=== PATIENT | female | born 1995 | race Two or more races ===

== ENCOUNTER 2020-03-07 09:04 | Observation (INO) ==
--- NOTE | 2020-02-21 09:29 | PAT Medication Instructions ---
Medication Instructions Date of Service February 21, 2020 Home Medications acetaminophen 325 mg tablet 325 mg PO QID PRN Take morning of surgery With a small sip of water, OTHERWISE NOTHING TO EAT OR DRINK AFTER MIDNIGHT: acetaminophen 325 mg tablet 325 mg PO QID PRN (okay to take up to 4 hours prior to surgery if needed) Take evening before surgery acetaminophen 325 mg tablet 325 mg PO QID PRN (if needed) Other Notes If you have any questions please call us at [phone] or [phone] or [phone] or [phone]
--- NOTE | 2020-02-26 09:48 | Anesthesiology Consultation ---
Date of Service February 26, 2020 Assessment & Plan (1) Encounter for pre-operative examination: Per PAT assessment on 02/25: Travel screen negative. No known COVID positive contacts. No history of COVID testing. No current COVID related symptoms. - Check test AM DOS Chart Review Chart Review: Acceptable Risk for Surgery and Patient seen in Pre Admission Testing Teaching & Discussion Pre-Anesthesia Teaching/Discussion Notes: Instructed NPO after midnight before surgery,except medications with 15 cc of water. Medication instructions provided according to the [facility] guidelines. History Surgery Operation Date: 03/07/20 10:30 Proposed Procedures p Robotic Laparoscopic Bilateral Ovarian Cystectomy, Possible Bilateral Removal of Ovaries - Ever Hardy Jr, MD, FACOG Height/Weight Height: 5 ft 3 in Weight: 63.6 kg Allergies Allergy/AdvReac Type Severity Reaction Status Date / Time No Known Allergies Allergy Verified 02/13/20 14:52 Medications Home Medications Medication Instructions Recorded Confirmed Last Taken acetaminophen 325 mg tablet 325 mg PO QID PRN 02/13/20 02/13/20 Unknown Past Medical History Medical History Dermoid cyst of both ovaries Dysmenorrhea Fibroids Exercise / Class Metabolic Activity II 4-5 Yardwork/Stairs/Walk up hill Past Surgical History Surgical History No history of previous surgery Past Anesthesia History No Hx of Anesthesia Complications and No Family Hx of Anesthesia Complications History of PONV No Hx of PONV and No Hx of Motion Sickness Social History Smoking Status: Never smoker Do You Dip or Chew Tobacco: No Hx Alcohol Use: Yes Alcohol type: wine alcohol intake frequency: a few times a month Hx Substance Use: No substance use type: does not use Review of Systems Patient denies chest pain, shortness of breath, dyspnea on exertion, fever, chil ls, cough, wheezing, palpitations. Physical Exam Vital Signs VITALS BP 100/65 P 67 TEMP 98.5 SP02 99%RA RESP 16 PHYSICAL Full neck and c-spine range of motion. Full TMJ range of motion. TMD 4 finger breaths Mallampati Score 2 Dentition: intact Lungs: clear throughout to auscultation Cardiac: regular rate and rhythm, no murmurs noted Spine: normal Extremities: no edema Testing Laboratory Results 02/26/20 10:21 Blood Type O Positive 02/26/20 10:21 Antibody Screen NEGATIVE 02/26/20 10:21
[2020-02-26 11:21] LABS: Hematocrit (blood only) 37.7 % (37-47); Hemoglobin 11.8 g/dL (12.0-16.0); Mean Corpuscular Hemoglobin 26.2 pg (25-34); Mean Corpuscular Hgb Conc 31.3 g/dL (32-36); Mean Corpuscular Volume 83.8 fL (80-100); Mean Platelet Volume 10.9 fL (7.4-10.4); Platelet Count 278 K/uL (130-400); RDW Coefficient of Variation 15.1 % (11.5-14.5); RDW Standard Deviation 46.3 fL (36.4-46.3)
[2020-02-26 11:49] LABS: Basophils # (auto) 0.01 K/uL (0-0.2); Basophils % (auto) 0.2 %; Eosinophils # (auto) 0.39 K/uL (0-0.5); Eosinophils % (auto) 6.2 %; Lymphocytes # (auto) 3.34 K/uL (1.2-3.4); Monocytes # (auto) 0.43 K/uL (0.11-0.59); Monocytes % (auto) 6.8 %; Neutrophils # (auto) 2.13 K/uL (1.4-6.5); Neutrophils % (auto) 33.8 %
[~2020-03-07 09:04] MED LIST: DEXAMETHASONE SOD INJ 4 MG/ML VIAL ONE; GLYCOPYRROLATE 0.2 MG/ML VIAL ONE; LACTATED RINGER'S 1,000 ML IV SCH; LIDOCAINE HCL 2% 2 ML VIAL/AMP(20MG/ML) INFIL ONE; LR 15ML/HR IV SCH; MIDAZOLAM HCL 1 MG/ML 2ML VIAL ONE; NEOSTIGMINE METHYLSULFATE 5 MG/5 ML SYR ONE; ONDANSETRON INJ 2 MG/ML 2 ML VIAL ONE; PROPOFOL IV EMULSION 10 MG/ML 20 ML VIAL IV ONE; ROCURONIUM BROMIDE 10 MG/ML 5 ML VIAL ONE; fentaNYL citrate 100 MCG/2 ML VIAL ONE
[2020-03-07] MEDS ORDERED: BUPIVACAINE 0.5 % 5 MG/1 ML MPF 30ML VIAL ONE (10:15)
--- NOTE | 2020-03-07 10:30 | History & Physical Bridge Note ---
Date of Service March 07, 2020 History & Physical Bridge Note I have examined the patient, reviewed the History & Physical and in the interval since the performance of the History & Physical I have noted the following changes of clinical significance: COVID-19 culture was negative
[2020-03-07] MEDS ORDERED: GLYCOPYRROLATE 0.2 MG/ML VIAL ONE (12:33)
[2020-03-07] MEDS ORDERED: ONDANSETRON INJ 2 MG/ML 2 ML VIAL ONE (12:52)
[2020-03-07] MEDS ORDERED: KETOROLAC 30 MG/ML VIAL ONE (13:05)
--- NOTE | 2020-03-07 13:15 | Post Operative Brief Note ---
PG Immediate Post Op with CF Date of Surgery March 07, 2020 Pre & Post Diagnosis Operation Date: 03/07/20 10:30 Pre-Op Diagnosis: Dermoid Cyst of Both Ovaries, Dysmenorrhea, Fibroi Post-Op Diagnosis: Dermoid Cyst of Both Ovaries, Dysmenorrhea, Fibroi I identified the patient and participated in the time-out.: Yes Procedure Operation Date: 03/07/20 10:30 Actual Procedures p Robotic Bilateral Laparoscopic Ovarian Cystectomy, - Ever Hardy Jr, MD, FACOG Surgeon Ever Hardy Jr, MD, FACOG Jig Borer Katelyn Estimated Blood Loss 30 Findings See Below (posterior 6 cm fibroid, bilateral 6 cm ovarian dermoid cyst, bilateral ovarian cysyectomy, right cyst ruptured with removal, pelvis copiously irragated) Specimens Specimen Description: Permanent Specimen A: Left Ovarian Cyst B: Right Ovarian Cyst C: Left Ovarian Biopsy Drains Starkey Catheter
[2020-03-07] MEDS: fentaNYL citrate 100 MCG/2 ML VIAL IV PRN ×4 (13:31→13:48)
[2020-03-07] MEDS ORDERED: fentaNYL citrate 100 MCG/2 ML VIAL ONE ×2 (13:33→13:44)
[2020-03-07] MEDS ORDERED: ePHEDrine sulfate 50 MG/ML AMP IV PRN (13:36)
[2020-03-07] MEDS ORDERED: ATROPINE SULFATE 0.1 MG/ML 10ML SYR IV PRN (13:36)
[2020-03-07] MEDS ORDERED: PROMETHAZINE HCL 6.25 MG in SODIUM CHLORIDE 0.9% 50 ML IV PRN (13:36)
[2020-03-07] MEDS ORDERED: ONDANSETRON INJ 2 MG/ML 2 ML VIAL IV PRN ×2 (13:36→15:09)
[2020-03-07] MEDS ORDERED: HYDROmorphone INJ 1 MG/ML SYRINGE ONE (13:44)
--- NOTE | 2020-03-07 14:10 | Operative Report (OR) ---
DATE OF OPERATION: 03/07/2020 PREOPERATIVE DIAGNOSIS: Bilateral ovarian cysts. POSTOPERATIVE DIAGNOSIS: Bilateral ovarian cysts. PROCEDURE PERFORMED: Bilateral ovarian cystectomy. SURGEON: Ever Hardy MD. TORPEDO WORKER: Rachel Zepeda MD. ANESTHESIA: General. FINDINGS: Laparoscopic examination of the pelvis showed a uterus with a 6 cm posterior fibroid. Bilateral ovarian cysts consistent with dermoid cysts were noted. Bilateral ovarian cystectomies performed. Cyst each measured approximately 6 cm, inadvertent rupture of right ovarian cyst during excision. Pelvis thoroughly irrigated with 1000 mL of warm saline. PROCEDURE IN DETAIL: The patient was taken to the operating room and after general anesthesia, was positioned, prepped, and draped for a laparoscopic ovarian cystectomy. Starkey catheter was inserted into the bladder, which remained there throughout the procedure. Allis tenaculum was used to grasp the anterior lip of the cervix. Cleary cannula was inserted into the cervical os and fastened to the tenaculum. Small subumbilical incision was made and a Veress needle was introduced into the pelvic cavity, which was then insufflated with 3 liters of CO2. An 11 mm suprapubic port was inserted into the umbilical incision. Pelvic organs were visualized and then under direct laparoscopic guidance, two 8 mm robotic ports were placed along with a 10 mm assistance port. The robot was brought to the table and successfully docked. The pelvis was visualized with the description as above. The left ovarian cyst was exophytic off the surface of the ovary. This allowed cauterization across the base of the cyst excising it from the residual ovary. The cyst was placed in a bag and brought out through the assistant plant controller 11 mm port and sent for pathological evaluation. The cortex of the right ovary was cauterized, opening and exposing the cyst wall. The cyst was carefully dissected out from the ovarian cortex, but a small incision was made into the cyst. The contents of the cyst, primarily fluid, was aspirated out. This allowed complete shelling of the ovarian cyst, which was then placed in a bag and brought out through the 11 mm assistants' port. The ovarian shell on the right was copiously irrigated. Hemostasis was present. The left ovary showed hemostasis. The pelvis was then thoroughly irrigated with 1000 mL of warm saline. Trocars were removed and the CO2 was allowed to escape from the pelvic cavity. The fascial defect from the 11 mm assistants' port was closed with interrupted [id number] Vicryl sutures. The skin incisions were closed with 4-0 subcuticular Vicryl sutures. Starkey catheter was removed along with the acorn cannula and Allis clamp. The patient was taken out of dorsal lithotomy to recovery room in satisfactory condition. I attest to the content of the Intraoperative Record and any orders documented therein. Any exception s are noted below.
[2020-03-07] MEDS: HYDROmorphone INJ 2 MG/ML SYR/VIAL IV PRN ×2 (14:13→14:18)
--- NOTE | 2020-03-07 14:49 | Anesthesiology Progress Note ---
Date of Service March 07, 2020 Anesthesia Post Procedure Vital Signs Vital Signs: Temp Pulse Pulse Resp BP BP Pulse Ox 03/07/20 14:25 66 16 114/63 98 03/07/20 14:15 71 16 107/62 94 03/07/20 14:05 36.4 C L 70 16 107/69 99 03/07/20 13:55 58 L 16 88/64 L 100 03/07/20 13:45 56 L 16 104/62 100 03/07/20 13:35 71 16 97/56 L 100 03/07/20 13:29 35.6 C L 58 L 16 108/49 L 99 03/07/20 09:30 37.3 C 90 20 108/69 99 Transfer of Care Handoff Completed per policy Notes Mental Status: alert / awake / arousable Patient Amnestic to Procedure: Yes Nausea / Vomiting: adequately controlled Pain: adequately controlled Airway Patency, RR, SpO2: stable & adequate BP & HR: stable & adequate Hydration State: stable & adequate Anesthetic Complications: no major complications apparent
[2020-03-07] MEDS ORDERED: ACETAMINOPHEN 325 MG TAB PO PRN (15:09)
[2020-03-07] MEDS ORDERED: KETOROLAC 30 MG/ML VIAL IV PRN (15:09)
[2020-03-07] MEDS ORDERED: OXYCODONE/ACETAMINOPHEN 5mg/325mg TAB PO PRN ×2 (15:09)
[2020-03-07] MEDS ORDERED: LACTATED RINGER'S 1,000 ML IV SCH (15:09)
[2020-03-07] MEDS ORDERED: IBUPROFEN 600 MG TAB PO PRN (15:09)
[2020-03-07] MEDS ORDERED: MEPERIDINE HCL 50 MG/ML CARP IV PRN (15:09)
--- NOTE | 2020-03-07 17:46 | Gynecologic Progress Note ---
Date of Service March 07, 2020 Assessment & Plan (1) Dermoid cyst of both ovaries: Discharge instructions given through medical and health services manager. All questions answered of the patient. Patient will follow-up in 2 weeks time for postoperative check. Admission and Anticipated Discharge Date Admission Date: March 07, 2020 Subjective Doing well would like to go home doing well would like to go home Results & Data ([facility]) Vital Signs (Past 12 Hours) Vital Signs Temp Pulse Pulse Resp BP BP Pulse Ox 03/07/20 15:45 83 12 92/53 L 94 03/07/20 15:15 71 16 103/55 L 98 03/07/20 14:45 97.5 F L 60 16 98/58 L 97 03/07/20 14:25 66 16 114/63 98 03/07/20 14:15 71 16 107/62 94 03/07/20 14:05 97.5 F L 70 16 107/69 99 03/07/20 13:55 58 L 16 88/64 L 100 03/07/20 13:45 56 L 16 104/62 100 03/07/20 13:35 71 16 97/56 L 100 03/07/20 13:29 96.1 F L 58 L 16 108/49 L 99 03/07/20 09:30 99.1 F 90 20 108/69 99 PG Care Time/CCT Total # of Minutes Spent Total Time Spent with Patient: Total time spent is greater than 50% in coordination of care (as documented) at patient's floor/unit and/or counseling patient: Coding Level of Care Code None Diagnoses Dermoid cyst of both ovaries D27.0; D27.1
--- NOTE | 2020-03-07 18:36 | Discharge Summary ---
Date of Service March 07, 2020 Admission HPI Per Admitting Provider The patient is a 24-year-old 0, last menstrual period of 11 February, who presents today for preoperative examination. History and examination is facilitated with use of a burr grinder. The patient has incapacitating dysmenorrhea which was being worked up by [facility]. The patient's symptoms were non responsive to conservative management and radiographically evaluation was ordered. The keisha velázquez had a pelvic ultrasound and subsequent pelvic MRI which showed bilateral 5 cm ovarian dermoids. The patient was referred to [facility] for evaluation and resection was recommended. The patient had deferred her surgery till January because her mother was planning to, to the [facility] from [place]. With the COVID 19 outbreak, her mother was unable to come to the [facility]. In addition, her roommate is out of the country and cannot return to the [facility]. Discharge Data Procedures Performed Operation Date: 03/07/20 10:30 Actual Procedures p Robotic Bilateral Laparoscopic Ovarian Cystectomy(Not Applicable) - Ever Hardy Jr, MD, [facility] Course (1) Dermoid cyst of both ovaries: On the day of admission the patient was taken to the operating room where she underwent the above listed procedures. Operative findings showed bilateral dermoid cyst approximately 5 to 6 cm in size. Bilateral ovarian cystectomies performed and sent for pathological evaluation. At the time of the surgery the 6 cm posterior wall fibroid was noted. Postoperatively the patient did well. The patient was able to ambulate, tolerate a regular diet, and void. She was given the discharge instructions via forestry laborer. She will follow-up in the office in 2 weeks time for a postoperative check, but as always she was instructed to call with any questions problems or difficulties. Coding Level of Care Code None Diagnoses Dermoid cyst of both ovaries D27.0; D27.1
== END 2020-03-07 18:15 | disposition home or self-care (01) ==
LOC: 4N 09:04 → ASU 09:04